=== PATIENT | female | born 1985 | race Caucasian/White ===

== ENCOUNTER → 2016-06-13 | Outpatient (CLI) | payer OTHER ==
[~2016-06-13] MED LIST: ALBU17IN INH; BACL-67 PO; CIPR-250 PO; GABA300C3 PO; PRIL40CA PO; SING10TA32 PO; TYLE325T5 PO; VICO5TAB16 PO
--- NOTE | 2016-06-13 18:15 | REP ---
Clinical: Pain. Effusion. Technique: AP, lateral, bilateral oblique, tunnel and sunrise views of the right knee. Findings: The osseous structures and joint spaces are intact and normal. There is no evidence for acute fracture or dislocation. No joint effusion is appreciated. Surrounding soft tissues are unremarkable. No subcutaneous emphysema or radiodense foreign body. Impression: Age appropriate examination. No evidence for acute fracture or dislocation. No effusion. Signed by Matthew Moreno MD 06/13/2016 06:07 P
== END ==
LOC: M RAD 17:17
PROVIDERS: ATTEND Orthopaedic Surgery
DX: M25.461 Effusion, right knee (principal)

== ENCOUNTER → 2016-11-20 | Outpatient (REF) | payer OTHER ==
[~2016-11-20] MED LIST changes: -BACL-67 PO; +BACL1TAB9 PO; +GABA-282 PO; -GABA300C3 PO
[2016-11-20 11:07] LABS: BASO % 0.4 % (0.0-1.0); EOS # 0.1 K/mm3 (0.0-0.50); EOS % 2.7 % (0.0-3.0); LARGE UNSTAINED CELL # 0.1 K/mm3 (0.0-0.4); LARGE UNSTAINED CELL % 2.3 % (0.0-4.0); LYMPH # 1.5 K/mm3 (1.5-4.5); LYMPH % 31.2 % (24.0-44.0); MEAN CORPUSCULAR HEMOGLOBIN 32.3 pg (27.0-33.0); MEAN CORPUSCULAR HGB CONC 34.2 g/dl (32.0-36.5); MEAN CORPUSCULAR VOLUME 94.4 fl (80.0-96.0); MONO # 0.3 K/mm3 (0.0-0.8); MONO % 6.4 % (0.0-5.0); NEUTROPHILS # 2.6 K/mm3 (1.8-7.7); PLATELET COUNT, AUTOMATED 200 k/mm3 (150-450); RED CELL DISTRIBUTION WIDTH 13.4 % (11.5-14.5); WHITE BLOOD COUNT 4.6 K/mm3 (4.0-10.0)
[2016-11-20 11:14] LABS: ALBUMIN 3.9 GM/DL (3.2-5.2); ALBUMIN/GLOBULIN RATIO 1.56 (1.00-1.93); ALKALINE PHOSPHATASE 67 U/L (45-117); ALT/SGPT 32 U/L (12-78); ANION GAP 8 MEQ/L (8-16); AST/SGOT 11 U/L (15-37); BILIRUBIN,TOTAL 0.6 MG/DL (0.2-1.0); BLOOD UREA NITROGEN 8 MG/DL (7-18); CALCIUM LEVEL 8.6 MG/DL (8.5-10.1); CARBON DIOXIDE LEVEL 24 MEQ/L (21-32); CHLORIDE LEVEL 110 MEQ/L (98-107); CREATININE FOR GFR 0.58 MG/DL (0.55-1.02); FERRITIN 23 NG/ML (8-252); GLOMERULAR FILTRATION RATE > 60.0 (>60); GLUCOSE, FASTING 83 MG/DL (70-105); MAGNESIUM LEVEL 2.1 MG/DL (1.8-2.4); PERCENT SATURATION 38.4 % (13.2-37.4); PHOSPHORUS LEVEL 3.7 MG/DL (2.5-4.9); POTASSIUM SERUM 4.1 MEQ/L (3.5-5.1); SODIUM LEVEL 142 MEQ/L (136-145); TOTAL IRON BINDING CAPACITY 245 UG/DL (250-450); TOTAL PROTEIN 6.4 GM/DL (6.4-8.2); VITAMIN B12 LEVEL 609 PG/ML (247-911)
[2016-11-22 10:55] LABS: PRETREATED FOLATE FOR RBCFOL 12.7 NG/ML
== END ==
LOC: M LABNEURO 10:39
PROVIDERS: ATTEND Surgery
DX: K91.2 Postsurgical malabsorption, not elsewhere classified (principal); Z98.84 Bariatric surgery status; E55.9 Vitamin D deficiency, unspecified

== ENCOUNTER → 2017-10-06 | Outpatient (REF) | payer OTHER ==
[2017-10-06 13:15] LABS: BASO % 0.6 % (0.0-1.0); EOS # 0.1 10^3/uL (0.0-0.50); EOS % 1.4 % (0.0-3.0); HEMATOCRIT 40.7 % (36.0-47.0); HEMOGLOBIN 13.7 g/dl (12.0-15.5); IMMATURE GRANULOCYTE % 0.3 % (0-3.0); LYMPH % 32.3 % (24.0-44.0); MEAN CORPUSCULAR HEMOGLOBIN 32.5 pg (27.0-33.0); MEAN CORPUSCULAR HGB CONC 33.7 g/dl (32.0-36.5); MEAN CORPUSCULAR VOLUME 96.4 fl (80.0-96.0); MONO # 0.5 10^3/uL (0.0-0.8); MONO % 8.3 % (0.0-5.0); NEUTROPHILS # 3.6 10^3/uL (1.8-7.7); NEUTROPHILS % 57.1 % (36.0-66.0); PLATELET COUNT, AUTOMATED 272 10^3/uL (150-450); RED BLOOD COUNT 4.22 10^6/uL (4.00-5.40); RED CELL DISTRIBUTION WIDTH 13.6 % (11.5-14.5); WHITE BLOOD COUNT 6.3 10^3/uL (4.0-10.0)
[2017-10-06 13:21] LABS: HEMATOCRIT 40.7 % (36.0-47.0)
[2017-10-06 13:40] LABS: ALBUMIN 3.9 GM/DL (3.2-5.2); ALBUMIN/GLOBULIN RATIO 1.39 (1.00-1.93); ALKALINE PHOSPHATASE 74 U/L (45-117); ALT/SGPT 26 U/L (12-78); ANION GAP 8 MEQ/L (8-16); AST/SGOT 16 U/L (7-37); BILIRUBIN,TOTAL 0.7 MG/DL (0.2-1.0); BLOOD UREA NITROGEN 13 MG/DL (7-18); CALCIUM LEVEL 8.9 MG/DL (8.5-10.1); CARBON DIOXIDE LEVEL 23 MEQ/L (21-32); CHLORIDE LEVEL 112 MEQ/L (98-107); CREATININE FOR GFR 0.69 MG/DL (0.55-1.30); FERRITIN 31 NG/ML (8-252); GLOMERULAR FILTRATION RATE > 60.0 (>60); GLUCOSE, FASTING 83 MG/DL (70-100); IRON (FE) 139 UG/DL (50-170); MAGNESIUM LEVEL 2.1 MG/DL (1.8-2.4); PERCENT SATURATION 54.5 % (13.2-45.0); POTASSIUM SERUM 3.9 MEQ/L (3.5-5.1); SODIUM LEVEL 143 MEQ/L (136-145); TOTAL IRON BINDING CAPACITY 255 UG/DL (250-450); TOTAL PROTEIN 6.7 GM/DL (6.4-8.2)
[2017-10-06 13:42] LABS: VITAMIN B12 LEVEL 611 PG/ML (247-911)
[2017-10-06 14:26] LABS: ESTIMATED AVERAGE GLUCOSE 94 MG/DL (60-110); HEMOGLOBIN A1c 4.9 %
[2017-10-06 14:28] LABS: TOTAL 25(OH) VITAMIN D 32.4 NG/ML (30.0-100.0)
[2017-10-07 10:14] LABS: PRETREATED FOLATE FOR RBCFOL 13.4 NG/ML; RBC FOLATE 691.4 NG/ML (280-791)
== END ==
LOC: M LABNEURO 08:10
DX: K91.2 Postsurgical malabsorption, not elsewhere classified (principal); Z98.84 Bariatric surgery status

== ENCOUNTER → 2019-01-25 | Outpatient (CLI) | payer OTHER ==
[~2019-01-25] MED LIST changes: -GABA-282 PO; +GABA-843 PO; -VICO5TAB16 PO; +VICO5TAB17 PO
[2019-01-27 10:00] LABS: HEPATITIS A ANTIBODY IGM NEGATIVE (NEGATIVE); HEPATITIS B CORE ANTIBODY IGM NEGATIVE (NEGATIVE); HEPATITIS B SURFACE ANTIGEN NEGATIVE (NEGATIVE); HEPATITIS C VIRUS ABY INDEX 0.2 INDEX (<0.8); HIV 1&2 SCREEN CENTAUR NEGATIVE (NEGATIVE)
[2019-01-28 14:07] LABS: HPV HYBRID CAPTURE II Negative (Negative)
== END ==
LOC: M LAB 16:32
PROVIDERS: ATTEND Advanced Practice Midwife
DX: Z12.4 Encounter for screening for malignant neoplasm of cervix (principal); Z11.3 Encounter for screening for infections with a predominantly sexual mode of transmission

== ENCOUNTER → 2019-01-25 | Outpatient (REF) | payer OTHER ==
[~2019-01-25] MED LIST changes: +CYCL5TAB; +HYDR-3713; +PRED20TA; +TOPI200T7
[2019-01-26 14:45] LABS: CHLAMYDIA DNA AMPLIFICATION NEGATIVE (NEGATIVE); GC DNA AMPLIFICATION NEGATIVE (NEGATIVE)
== END ==
LOC: M LAB REF 12:57
PROVIDERS: ATTEND Advanced Practice Midwife
DX: Z11.3 Encounter for screening for infections with a predominantly sexual mode of transmission (principal)

== ENCOUNTER 2019-02-06 05:08 | Emergency (ER) | payer OTHER ==
[~2019-02-06] VITALS: Ht 157.5 cm; Wt 69.1 kg
[~2019-02-06 05:08] MED LIST changes: -CYCL5TAB; -HYDR-3713; -PRED20TA; -TOPI200T7
[2019-02-06] MEDS ORDERED: PRED20TA (05:36)
[2019-02-06] MEDS ORDERED: CYCL5TAB (05:36)
[2019-02-06] MEDS ORDERED: TOPI200T7 (05:36)
[2019-02-06] MEDS ORDERED: HYDR-3713 (05:36)
[2019-02-06] MEDS ORDERED: methylPREDNISolone INJ 125 MG/2 ML VIAL (J2930) IM ONE (06:45)
[2019-02-06] MEDS ORDERED: CYCLOBENZAPRINE 10 MG TAB PO ONE (06:45)
[2019-02-06] MEDS ORDERED: NORCO, ANEXSIA 5/325MG TABLET (HYDROcodone/ACETAMINOPHEN) PO ONE (06:45)
--- NOTE | 2019-02-06 07:43 | REPVR ---
PROCEDURE INFORMATION: Exam: CT Cervical Spine Without Contrast Exam date and time: 02/06/2019 7:13 AM Clinical history: 33 years old, female; Neck pain TECHNIQUE: Imaging protocol: Computed tomography images of the cervical spine without contrast. Radiation optimization: All CT scans at this facility use at least one of these dose optimization techniques: automated exposure control; mA and/or kV adjustment per patient size (includes targeted exams where dose is matched to clinical indication); or iterative reconstruction. COMPARISON: No relevant prior studies available. FINDINGS: Vertebrae: No acute fracture. There is mild reversal of the normal cervical lordosis, possibly positional or due to muscle spasm. Discs/Spinal canal/Neural foramina: No severe osseous spinal canal stenosis. Multilevel overall mild degenerative findings. Soft tissues: Unremarkable. Lungs: Lung apices are normal. IMPRESSION: 1. No acute cervical spine fracture or traumatic malalignment. 2. There is mild reversal of the normal cervical lordosis, possibly positional or due to muscle spasm. Electronically signed by: Ajay Brooks On 02/06/2019 07:42:50 AM
[2019-02-06 08:23] VITALS: BP 134/84
== END 2019-02-06 08:24 | disposition home or self-care (01) ==
LOC: M ED 05:08
DX: M54.12 Radiculopathy, cervical region (principal); Z88.0 Allergy status to penicillin; Z88.2 Allergy status to sulfonamides; Z79.899 Other long term (current) drug therapy
CPT/HCPCS: 72125; 81001; 96372; 99284; J2930

== ENCOUNTER → 2020-08-07 | Outpatient (REF) | payer OTHER ==
[~2020-08-07] MED LIST changes: +CYCL5TAB; +GABA-282 PO; -GABA-843 PO; +HYDR-3713; +PRED20TA; +TOPI200T7
== END ==
LOC: M SFHCWAGY 17:24
PROVIDERS: ATTEND Advanced Practice Midwife
DX: Z12.4 Encounter for screening for malignant neoplasm of cervix (principal)

== ENCOUNTER → 2020-10-03 | Outpatient (CLI) | payer OTHER | LOC: M SLEEP HO 14:43 | PROVIDERS: ATTEND Family Medicine | DX: G47.30 Sleep apnea, unspecified (principal) ==

== ENCOUNTER → 2022-01-21 | Outpatient (CLI) | payer OTHER | LOC: M PLARAD 16:00 | PROVIDERS: ATTEND Physician Assistant | DX: R91.1 Solitary pulmonary nodule (principal) | CPT/HCPCS: 78815; A9552 ==

== ENCOUNTER → 2022-03-28 | Outpatient (CLI) | payer OTHER ==
[2022-03-28 11:58] LABS: BASO # 0.1 10^3/uL (0.0-0.2); BASO % 0.6 % (0.0-1.0); EOS # 0.1 10^3/uL (0.0-0.5); EOS % 1.4 % (0.0-3.0); HEMATOCRIT 38.5 % (36.0-47.0); HEMOGLOBIN 12.5 g/dl (12.0-15.5); LYMPH # 1.8 10^3/uL (1.5-5.0); LYMPH % 22.2 % (24.0-44.0); MEAN CORPUSCULAR HEMOGLOBIN 28.8 pg (27.0-33.0); MEAN CORPUSCULAR HGB CONC 32.5 g/dl (32.0-36.5); MEAN CORPUSCULAR VOLUME 88.7 fl (80.0-96.0); MONO # 0.5 10^3/uL (0.0-0.8); MONO % 6.8 % (2.0-8.0); NEUTROPHILS # 5.4 10^3/uL (1.5-8.5); NEUTROPHILS % 68.7 % (36.0-66.0); PLATELET COUNT, AUTOMATED 275 10^3/uL (150-450); RED BLOOD COUNT 4.34 10^6/uL (4.00-5.40); WHITE BLOOD COUNT 7.9 10^3/uL (4.0-10.0)
[2022-03-28 12:47] LABS: IRON (FE) 104 UG/DL (50-170); PERCENT SATURATION 26.9 % (13.2-45.0); TOTAL IRON BINDING CAPACITY 387 UG/DL (250-425)
[2022-03-28 12:50] LABS: FERRITIN 5.2 NG/ML (7.3-270.7); VITAMIN B12 LEVEL 548 PG/ML (211-911)
[2022-03-28 12:53] LABS: TOTAL 25(OH) VITAMIN D 48.2 NG/ML (20.0-100.0)
[2022-03-28 13:10] LABS: ALBUMIN 3.6 G/DL (3.2-5.2); ALKALINE PHOSPHATASE 63 U/L (46-116); ALT/SGPT 12 U/L (7.0-40); AST/SGOT 19 U/L (<34); BILIRUBIN,TOTAL 0.5 MG/DL (0.3-1.2); BLOOD UREA NITROGEN 11 MG/DL (9-23); CALCIUM LEVEL 8.7 MG/DL (8.5-10.1); CARBON DIOXIDE LEVEL 25 MMOL/L (20-31); CHLORIDE LEVEL 105 MMOL/L (98-107); CHOLESTEROL LEVEL 191 MG/DL (<200); CHOLESTEROL RISK RATIO 2.53 (<5); CREATININE FOR GFR 0.59 MG/DL (0.55-1.30); FOLATE > 24.0 NG/ML (>5.4); GLOMERULAR FILTRATION RATE > 60.0 (>60); GLUCOSE, FASTING 76 MG/DL (60-100); HDL CHOLESTEROL 75.4 MG/DL (>40); LDL CHOLESTEROL 97.2 MG/DL (<100); NON-HDL-C 116 MG/DL; POTASSIUM SERUM 4.2 MMOL/L (3.5-5.1); SODIUM LEVEL 139 MMOL/L (136-145); TOTAL PROTEIN 6.7 G/DL (5.7-8.2); TRIGLYCERIDES LEVEL 92 MG/DL (<150)
[2022-04-02 12:35] LABS: FREE T4 0.96 NG/DL (0.89-1.76)
== END ==
LOC: M LAB 09:31
PROVIDERS: ATTEND Physician Assistant
DX: Z98.84 Bariatric surgery status (principal); R42 Dizziness and giddiness; J45.909 Unspecified asthma, uncomplicated

== ENCOUNTER → 2022-04-30 | Outpatient (REF) ==
[2022-04-30 13:22] LABS: RSV AMPLIFICATION NEGATIVE (NEGATIVE)
== END ==
LOC: M LABSMTC 09:59
PROVIDERS: ATTEND Family Medicine
DX: Z20.818 Contact with and (suspected) exposure to other bacterial communicable diseases (principal)

== ENCOUNTER → 2022-05-21 | Outpatient (REF) ==
[2022-05-21 14:23] LABS: RSV AMPLIFICATION NEGATIVE (NEGATIVE)
== END ==
LOC: M LABSMTC 09:49
PROVIDERS: ATTEND Family Medicine
DX: Z11.52 Encounter for screening for COVID-19 (principal)

== ENCOUNTER 2022-08-16 09:52 | Day surgery (SDC) | payer OTHER ==
[~2022-08-16] VITALS: Ht 157.5 cm; Wt 62.6 kg
[~2022-08-16 09:52] MED LIST changes: +BUPR15TA PO; +GABA800T4 PO; +HYDR-3363 PO; +LEXA1TAB PO; +LIDOCAINE 2% 100MG/5ML SDV (FOR ANES.) As Ordered ONE; +MONT-5 PO; +NS 1,000 ML IV ONE; +OMEP1CAP73 PO; +PROA1AER2 INH; -SING10TA32 PO; +fentaNYL 100 MCG/2 ML INJECTION As Ordered ONE; +propofoL 500 MG/50 ML VIAL As Ordered ONE
[2022-08-16] MEDS ORDERED: SIMETHICONE 40MG/0.6ML DROPS 30ML As Ordered ONE (11:17)
[2022-08-16 11:57] VITALS: BP 120/61
== END 2022-08-16 12:10 | disposition home or self-care (01) ==
LOC: M OPP 09:52
PROVIDERS: ATTEND Internal Medicine Gastroenterology
DX: K52.9 Noninfective gastroenteritis and colitis, unspecified (principal); K64.4 Residual hemorrhoidal skin tags; K64.8 Other hemorrhoids; K31.89 Other diseases of stomach and duodenum; Z98.84 Bariatric surgery status; Z79.51 Long term (current) use of inhaled steroids; Z79.891 Long term (current) use of opiate analgesic; Z79.899 Other long term (current) drug therapy; Z88.0 Allergy status to penicillin; Z88.2 Allergy status to sulfonamides; Z88.5 Allergy status to narcotic agent; Z80.0 Family history of malignant neoplasm of digestive organs; Z83.71 Family history of colonic polyps
CPT/HCPCS: 43239; 45385; 88305; J3010

== ENCOUNTER 2023-04-01 15:55 | Inpatient (IN) | payer OTHER ==
[~2023-04-01] VITALS: Ht 157.5 cm; Wt 70.0 kg
[~2023-04-01 15:55] MED LIST changes: -LIDOCAINE 2% 100MG/5ML SDV (FOR ANES.) As Ordered ONE; -NS 1,000 ML IV ONE; -fentaNYL 100 MCG/2 ML INJECTION As Ordered ONE; -propofoL 500 MG/50 ML VIAL As Ordered ONE
[2023-04-01] MEDS ORDERED: ACETAMINOPHEN TAB 650MG DOSE (2X325MG) PO ONE (16:15)
[2023-04-01] MEDS ORDERED: EFFE75CA2 PO (16:18)
[2023-04-01] MEDS ORDERED: CEFEPIME HCL 2 GM in D5W MINI-BAG PLUS 50 ML IV ONE (16:20)
[2023-04-01 18:21] LABS: BASO % 0.2 % (0.0-1.0); EOS # 0.7 10^3/uL (0.0-0.5); EOS % 7.1 % (0.0-3.0); HEMATOCRIT 32.9 % (36.0-47.0); LYMPH # 0.6 10^3/uL (1.5-5.0); MEAN CORPUSCULAR HEMOGLOBIN 28.9 pg (27.0-33.0); MEAN CORPUSCULAR HGB CONC 33.4 g/dl (32.0-36.5); MEAN CORPUSCULAR VOLUME 86.4 fl (80.0-96.0); MONO # 0.6 10^3/uL (0.0-0.8); NEUTROPHILS # 8.1 10^3/uL (1.5-8.5); NEUTROPHILS % 80.4 % (36.0-66.0); PLATELET COUNT, AUTOMATED 236 10^3/uL (150-450); RED BLOOD COUNT 3.81 10^6/uL (4.00-5.40); WHITE BLOOD COUNT 10.1 10^3/uL (4.0-10.0)
[2023-04-01 18:33] LABS: INR 1.17; PROTHROMBIN TIME 14.5 SECONDS (12.5-14.5)
[2023-04-01 18:34] LABS: ERYTHROCYTE SEDIMENTATION RATE 25 mm/hr (0-20); PARTIAL THROMBOPLASTIN TIME 37.7 SECONDS (24.8-34.2)
[2023-04-01] MEDS ORDERED: MED REC IN PROGRESS XX SCH (18:40)
[2023-04-01 18:42] LABS: ALBUMIN 2.7 G/DL (3.2-5.2); ALKALINE PHOSPHATASE 89 U/L (46-116); ALT/SGPT 15 U/L (7.0-40); AST/SGOT 11 U/L (<34); BILIRUBIN,DIRECT 0.2 MG/DL (<0.4); BILIRUBIN,TOTAL 0.6 MG/DL (0.3-1.2); BLOOD UREA NITROGEN 8 MG/DL (9-23); CALCIUM LEVEL 7.9 MG/DL (8.5-10.1); CARBON DIOXIDE LEVEL 26 MMOL/L (20-31); CHLORIDE LEVEL 99 MMOL/L (98-107); GLOMERULAR FILTRATION RATE > 60.0 (>58); GLUCOSE, FASTING 94 MG/DL (60-100); POTASSIUM SERUM 3.9 MMOL/L (3.5-5.1); SODIUM LEVEL 130 MMOL/L (136-145); TOTAL PROTEIN 5.8 G/DL (5.7-8.2)
[2023-04-01] MEDS ORDERED: IPRA0.00 INH (18:58)
[2023-04-01] MEDS ORDERED: NITR100C2 PO (18:58)
[2023-04-01] MEDS ORDERED: LAMO25TA4 PO (18:58)
[2023-04-01] MEDS ORDERED: DOXY100T PO (18:58)
[2023-04-01] MEDS ORDERED: NORE1PAT TD (18:58)
[2023-04-01] MEDS ORDERED: HYDR50TA70 PO (18:58)
[2023-04-01] MEDS ORDERED: OMEP40CA5 PO (18:58)
[2023-04-01] MEDS ORDERED: MONT-5 PO (18:59)
[2023-04-01] MEDS ORDERED: HOME MED LIST COMPLETE! XX SCH (19:05)
[2023-04-01 19:37] LABS: APPEARANCE, URINE HAZY (CLEAR); BACTERIA, URINE AUTO 1+ (NEGATIVE); BILIRUBIN, URINE AUTO NEGATIVE (NEGATIVE); BLOOD, URINE BLOOD NEGATIVE (NEGATIVE); COLOR, URINE YELLOW (YELLOW); GLUCOSE, URINE (UA) AUTO NEGATIVE (NEGATIVE); KETONE, URINE AUTO TRACE mg/dL (NEGATIVE); LEUKOCYTE ESTERASE, URINE AUTO NEGATIVE (NEGATIVE); MUCUS, URINE SMALL (NEGATIVE); NITRITE, URINE AUTO NEGATIVE (NEGATIVE); PROTEIN, URINE AUTO NEGATIVE (NEGATIVE); RBC, URINE AUTO 1 /HPF (0-3); SPECIFIC GRAVITY URINE AUTO 1.013 (1.002-1.035); SQUAMOUS EPITHELIAL CELL UR AU 11 /HPF (0-6); WBC, URINE AUTO 1 /HPF (0-3)
[2023-04-01] MEDS ORDERED: ALBUTEROL 90 MCG/ACT 8GM HFA INHALER INH PRN (21:20)
[2023-04-01] MEDS ORDERED: IPRATROPIUM 0.5MG/ALBUTEROL 2.5MG INH SOL UD 3ML (DUONEB) INH PRN (21:20)
[2023-04-01] MEDS ORDERED: ACETAMINOPHEN TAB 650MG DOSE (2X325MG) PO PRN (21:20)
[2023-04-01] MEDS ORDERED: LEVALBUTEROL HFA 45MCG/ACT 15GM INHALER INH PRN (21:30)
[2023-04-01] MEDS ORDERED: VANCOMYCIN HCL 750 MG, VIAL MATE ADAPTER 1 EACH in D5W 250 ML IV ONE ×2 (22:00→23:00)
[2023-04-01] MEDS ORDERED: VANCOMYCIN HCL 1,000 MG, VIAL MATE ADAPTER 1 EACH in D5W 250 ML IV SCH (22:00)
[2023-04-01] MEDS: MONTELUKAST 10 MG TAB PO SCH (22:14)
[2023-04-01] MEDS: hydrOXYzine 50 MG TAB PO SCH (22:14)
[2023-04-01] MEDS: OMEPRAZOLE 20MG CAP PO SCH (22:14)
[2023-04-01] MEDS: buPROPion **SR TABLET** (ZYBAN) 150MG PO SCH (22:15)
[2023-04-01] MEDS: LACTOBACILLUS ACIDOPHILUS CAP (BACID) PO SCH (22:15)
[2023-04-01] MEDS: GABAPENTIN 400MG CAP PO SCH (22:15)
[2023-04-01 23:07] VITALS: BP 128/62; TEMP 99.9; O2SAT 99
[2023-04-01 23:16] LABS: OSMOLALITY SERUM 270 MOSM/KG (275-295)
[2023-04-01 23:18] LABS: HIV 1&2 SCREEN NEGATIVE (NEGATIVE)
[2023-04-01 23:27] LABS: HEPATITIS C VIRUS ABY INDEX 0.16 INDEX (<0.8)
[2023-04-02] MEDS ORDERED: METH10CO PO (00:57)
[2023-04-02 06:00] VITALS: BP 126/78; TEMP 99.4; O2SAT 96
[2023-04-02] MEDS: VANCOMYCIN HCL 750 MG, VIAL MATE ADAPTER 1 EACH in D5W 250 ML IV SCH ×4 (06:12→23:26)
[2023-04-02 06:33] LABS: BASO % 0.3 % (0.0-1.0); EOS # 1.4 10^3/uL (0.0-0.5); EOS % 15.7 % (0.0-3.0); HEMATOCRIT 33.7 % (36.0-47.0); LYMPH # 1.5 10^3/uL (1.5-5.0); LYMPH % 16.9 % (24.0-44.0); MEAN CORPUSCULAR HGB CONC 32.6 g/dl (32.0-36.5); MEAN CORPUSCULAR VOLUME 88.9 fl (80.0-96.0); MONO # 0.8 10^3/uL (0.0-0.8); MONO % 8.6 % (2.0-8.0); NEUTROPHILS # 5.2 10^3/uL (1.5-8.5); NEUTROPHILS % 58.3 % (36.0-66.0); PLATELET COUNT, AUTOMATED 198 10^3/uL (150-450); RED BLOOD COUNT 3.79 10^6/uL (4.00-5.40); WHITE BLOOD COUNT 8.9 10^3/uL (4.0-10.0)
[2023-04-02 07:06] LABS: BLOOD UREA NITROGEN 7 MG/DL (9-23); CALCIUM LEVEL 7.6 MG/DL (8.5-10.1); CARBON DIOXIDE LEVEL 26 MMOL/L (20-31); CHLORIDE LEVEL 103 MMOL/L (98-107); CREATININE FOR GFR 0.62 MG/DL (0.55-1.30); GLOMERULAR FILTRATION RATE > 60.0 (>58); GLUCOSE, FASTING 100 MG/DL (60-100); POTASSIUM SERUM 3.9 MMOL/L (3.5-5.1); SODIUM LEVEL 135 MMOL/L (136-145)
[2023-04-02] MEDS: GABAPENTIN 400MG CAP PO SCH ×3 (09:16→22:03)
[2023-04-02] MEDS: buPROPion **SR TABLET** (ZYBAN) 150MG PO SCH ×2 (09:16→22:03)
[2023-04-02] MEDS: hydrOXYzine 50 MG TAB PO SCH ×3 (09:16→22:03)
[2023-04-02] MEDS: OMEPRAZOLE 20MG CAP PO SCH ×2 (09:16→22:03)
[2023-04-02 09:17] LABS: ANTI-STREPTOLYSIN O QUANT 132.2 IU/ML (<195)
[2023-04-02] MEDS: LACTOBACILLUS ACIDOPHILUS CAP (BACID) PO SCH ×4 (09:17→22:02)
[2023-04-02] MEDS: VENLAFAXINE **XR** 75MG CAPSULE PO SCH (09:17)
[2023-04-02] MEDS: lamoTRIgine 25MG TAB PO SCH (09:17)
[2023-04-02] MEDS ORDERED: INFLUENZA QUADRIVALENT PF VACCINE 0.5ML SYRINGE IM.IMMUN ONE (11:00)
[2023-04-02] MEDS: METHADONE 10MG TAB PO SCH (12:12)
[2023-04-02 14:22] VITALS: BP 100/53; TEMP 98.1; O2SAT 96
[2023-04-02 20:00] VITALS: BP 106/53; TEMP 98.1; O2SAT 98
[2023-04-02] MEDS: MONTELUKAST 10 MG TAB PO SCH (22:03)
[2023-04-02] MEDS: ENOXAPARIN 40MG/0.4ML SYRINGE (J1650 PER 10MG) SC SCH (22:04)
[2023-04-02 22:47] VITALS: BP 100/60; TEMP 98; O2SAT 99
[2023-04-03 06:20] VITALS: BP 105/62; TEMP 98.1; O2SAT 99
[2023-04-03 06:25] LABS: HEMATOCRIT 30.9 % (36.0-47.0); MEAN CORPUSCULAR HEMOGLOBIN 29.1 pg (27.0-33.0); MEAN CORPUSCULAR HGB CONC 32.4 g/dl (32.0-36.5); MEAN CORPUSCULAR VOLUME 89.8 fl (80.0-96.0); PLATELET COUNT, AUTOMATED 255 10^3/uL (150-450); RED BLOOD COUNT 3.44 10^6/uL (4.00-5.40); WHITE BLOOD COUNT 7.4 10^3/uL (4.0-10.0)
[2023-04-03] MEDS: VANCOMYCIN HCL 750 MG, VIAL MATE ADAPTER 1 EACH in D5W 250 ML IV SCH ×3 (06:28→22:19)
[2023-04-03 06:52] LABS: BLOOD UREA NITROGEN 8 MG/DL (9-23); CALCIUM LEVEL 7.6 MG/DL (8.5-10.1); CARBON DIOXIDE LEVEL 28 MMOL/L (20-31); CHLORIDE LEVEL 106 MMOL/L (98-107); CREATININE FOR GFR 0.64 MG/DL (0.55-1.30); GLOMERULAR FILTRATION RATE > 60.0 (>58); GLUCOSE, FASTING 81 MG/DL (60-100); POTASSIUM SERUM 4.1 MMOL/L (3.5-5.1); SODIUM LEVEL 141 MMOL/L (136-145)
[2023-04-03 08:00] VITALS: BP 114/61; TEMP 98.2; O2SAT 99
[2023-04-03] MEDS: GABAPENTIN 400MG CAP PO SCH ×3 (08:29→22:24)
[2023-04-03] MEDS: VENLAFAXINE **XR** 75MG CAPSULE PO SCH (08:29)
[2023-04-03] MEDS: LACTOBACILLUS ACIDOPHILUS CAP (BACID) PO SCH ×4 (08:29→22:24)
[2023-04-03] MEDS: buPROPion **SR TABLET** (ZYBAN) 150MG PO SCH ×2 (08:29→22:24)
[2023-04-03] MEDS: hydrOXYzine 50 MG TAB PO SCH ×3 (08:30→22:24)
[2023-04-03] MEDS: lamoTRIgine 25MG TAB PO SCH (08:30)
[2023-04-03] MEDS: METHADONE 10MG TAB PO SCH (08:30)
[2023-04-03] MEDS: OMEPRAZOLE 20MG CAP PO SCH ×2 (08:30→22:24)
[2023-04-03] MEDS: MUPIROCIN 2% OINT 22 GM TUBE TOP SCH ×2 (09:15→22:26)
[2023-04-03 13:40] VITALS: BP 108/63; TEMP 97.1; O2SAT 99
[2023-04-03 21:14] VITALS: BP 119/76; TEMP 98.4; O2SAT 99
[2023-04-03] MEDS: MONTELUKAST 10 MG TAB PO SCH (22:24)
[2023-04-03] MEDS: ENOXAPARIN 40MG/0.4ML SYRINGE (J1650 PER 10MG) SC SCH (22:25)
[2023-04-04] MEDS: VANCOMYCIN HCL 750 MG, VIAL MATE ADAPTER 1 EACH in D5W 250 ML IV SCH (05:56)
[2023-04-04 06:01] LABS: BASO % 0.5 % (0.0-1.0); EOS # 0.7 10^3/uL (0.0-0.5); EOS % 11.1 % (0.0-3.0); HEMATOCRIT 31.5 % (36.0-47.0); HEMOGLOBIN 10.2 g/dl (12.0-15.5); LYMPH # 2.2 10^3/uL (1.5-5.0); MEAN CORPUSCULAR HEMOGLOBIN 28.7 pg (27.0-33.0); MEAN CORPUSCULAR HGB CONC 32.4 g/dl (32.0-36.5); MEAN CORPUSCULAR VOLUME 88.5 fl (80.0-96.0); MONO # 0.4 10^3/uL (0.0-0.8); MONO % 6.9 % (2.0-8.0); NEUTROPHILS % 47.2 % (36.0-66.0); PLATELET COUNT, AUTOMATED 258 10^3/uL (150-450); RED BLOOD COUNT 3.56 10^6/uL (4.00-5.40); WHITE BLOOD COUNT 6.4 10^3/uL (4.0-10.0)
[2023-04-04 06:13] VITALS: BP 121/78; TEMP 98.1; O2SAT 98
[2023-04-04] MEDS: VENLAFAXINE **XR** 75MG CAPSULE PO SCH (08:31)
[2023-04-04] MEDS: LACTOBACILLUS ACIDOPHILUS CAP (BACID) PO SCH (08:31)
[2023-04-04] MEDS: GABAPENTIN 400MG CAP PO SCH (08:31)
[2023-04-04] MEDS: buPROPion **SR TABLET** (ZYBAN) 150MG PO SCH (08:31)
[2023-04-04] MEDS: OMEPRAZOLE 20MG CAP PO SCH (08:31)
[2023-04-04] MEDS: METHADONE 10MG TAB PO SCH (08:31)
[2023-04-04] MEDS: lamoTRIgine 25MG TAB PO SCH (08:32)
[2023-04-04] MEDS: hydrOXYzine 50 MG TAB PO SCH (08:32)
[2023-04-04] MEDS: MUPIROCIN 2% OINT 22 GM TUBE TOP SCH (08:33)
[2023-04-04 08:55] LABS: BLOOD UREA NITROGEN 7 MG/DL (9-23); CALCIUM LEVEL 7.6 MG/DL (8.5-10.1); CARBON DIOXIDE LEVEL 26 MMOL/L (20-31); CHLORIDE LEVEL 110 MMOL/L (98-107); CREATININE FOR GFR 0.62 MG/DL (0.55-1.30); GLOMERULAR FILTRATION RATE > 60.0 (>58); GLUCOSE, FASTING 98 MG/DL (60-100); POTASSIUM SERUM 3.9 MMOL/L (3.5-5.1); SODIUM LEVEL 142 MMOL/L (136-145)
[2023-04-04] MEDS ORDERED: NICOTINE 14 MG/24 HR TRANSDERMAL TD SCH (09:00)
[2023-04-04] MEDS ORDERED: MUPI2OI TOP (09:26)
[2023-04-04] MEDS ORDERED: HIBI4LIQ EX (09:26)
[2023-04-04] MEDS ORDERED: DALV1SOL IV (10:40)
== END 2023-04-04 12:03 | disposition home or self-care (01) | DRG 383 ==
LOC: M ED 15:55 → EDBD 15:55 → M ED INP 20:43 → M MS4PR 22:59 → M MS5PR 04-02 22:47
PROVIDERS: ADMIT Internal Medicine; ATTEND Internal Medicine
DX: L03.113 Cellulitis of right upper limb (principal); D72.10 Eosinophilia, unspecified; E87.1 Hypo-osmolality and hyponatremia; E88.09 Other disorders of plasma-protein metabolism, not elsewhere classified; F11.20 Opioid dependence, uncomplicated; J45.909 Unspecified asthma, uncomplicated; R91.8 Other nonspecific abnormal finding of lung field; G47.33 Obstructive sleep apnea (adult) (pediatric); K21.9 Gastro-esophageal reflux disease without esophagitis; D72.810 Lymphocytopenia; F41.9 Anxiety disorder, unspecified; F31.9 Bipolar disorder, unspecified; F43.10 Post-traumatic stress disorder, unspecified; F17.210 Nicotine dependence, cigarettes, uncomplicated; Z79.899 Other long term (current) drug therapy; Z88.0 Allergy status to penicillin; Z88.2 Allergy status to sulfonamides; Z88.5 Allergy status to narcotic agent; Z98.84 Bariatric surgery status; Z90.49 Acquired absence of other specified parts of digestive tract; Z98.1 Arthrodesis status

== ENCOUNTER → 2023-04-04 | Outpatient (CLI) | payer OTHER ==
[~2023-04-04] VITALS: Ht 157.5 cm; Wt 70.0 kg
[~2023-04-04] MED LIST changes: +DALBAVANCIN 1,500 MG in D5W 250 ML IV ONE; +DALV1SOL IV; +DOXY100T PO; +EFFE75CA2 PO; +HIBI4LIQ EX; +HYDR50TA70 PO; +IPRA0.00 INH; +LAMO25TA4 PO; +METH10CO PO; +MUPI2OI TOP; +NITR100C2 PO; +NORE1PAT TD; +OMEP40CA5 PO
[2023-04-04 12:30] VITALS: BP 113/57; O2SAT 97
== END ==
LOC: M INFU 12:22
PROVIDERS: ATTEND Internal Medicine
DX: L03.90 Cellulitis, unspecified (principal); Z88.0 Allergy status to penicillin; Z88.2 Allergy status to sulfonamides; Z88.5 Allergy status to narcotic agent
CPT/HCPCS: 96365; J0875

== ENCOUNTER 2024-04-14 16:16 | Emergency (ER) | payer OTHER ==
[~2024-04-14] VITALS: Ht 157.5 cm; Wt 75.8 kg
[~2024-04-14 16:16] MED LIST changes: -CYCL5TAB; +CYCL5TAB4; -DALBAVANCIN 1,500 MG in D5W 250 ML IV ONE; +GABA-1172 PO; +GABA-1635 PO; -GABA-282 PO; -GABA800T4 PO
[2024-04-14 16:44] VITALS: BP 146/80; TEMP 98.1; O2SAT 97
[2024-04-15] MEDS ORDERED: CLEO300C2 PO (19:47)
== END 2024-04-14 17:54 | disposition left against medical advice (07) ==
LOC: M ED 16:16
DX: Z53.21 Procedure and treatment not carried out due to patient leaving prior to being seen by health care provider (principal)

== ENCOUNTER 2024-04-15 12:54 | Emergency (ER) | payer OTHER ==
[~2024-04-15] VITALS: Ht 157.5 cm; Wt 75.5 kg
[2024-04-15 15:08] LABS: BASO # 0.1 10^3/uL (0.0-0.2); BASO % 0.7 % (0.0-1.0); EOS # 0.1 10^3/uL (0.0-0.5); EOS % 0.8 % (0.0-3.0); HEMATOCRIT 37.5 % (36.0-47.0); HEMOGLOBIN 12.1 g/dl (12.0-15.5); LYMPH # 1.7 10^3/uL (1.5-5.0); LYMPH % 23.1 % (24.0-44.0); MEAN CORPUSCULAR HEMOGLOBIN 27.6 pg (27.0-33.0); MEAN CORPUSCULAR HGB CONC 32.3 g/dl (32.0-36.5); MEAN CORPUSCULAR VOLUME 85.6 fl (80.0-96.0); MONO # 0.5 10^3/uL (0.0-0.8); MONO % 6.5 % (2.0-8.0); NEUTROPHILS # 5.1 10^3/uL (1.5-8.5); NEUTROPHILS % 68.8 % (36.0-66.0); PLATELET COUNT, AUTOMATED 302 10^3/uL (150-450); RED BLOOD COUNT 4.38 10^6/uL (4.00-5.40); WHITE BLOOD COUNT 7.4 10^3/uL (4.0-10.0)
[2024-04-15 15:18] LABS: ERYTHROCYTE SEDIMENTATION RATE 31 mm/hr (0-20)
[2024-04-15 15:36] LABS: HCG, SERUM QUALITATIVE NEGATIVE (NEGATIVE)
[2024-04-15 15:38] LABS: C REACTIVE PROTEIN QUANTITATIV 4.75 MG/DL (<1.0)
[2024-04-15] MEDS ORDERED: DALBAVANCIN 1,500 MG in D5W 250 ML IV ONE (16:20)
[2024-04-15] MEDS ORDERED: CLEO300C2 PO (19:47)
[2024-04-15 19:59] VITALS: BP 140/87; TEMP 97.8; O2SAT 98
[2024-04-15] MEDS: CLINDAMYCIN 150MG CAPSULE PO ONE (19:59)
== END 2024-04-15 20:01 | disposition home or self-care (01) ==
LOC: M ED 12:54
DX: L03.116 Cellulitis of left lower limb (principal); R22.42 Localized swelling, mass and lump, left lower limb; Z88.2 Allergy status to sulfonamides; Z91.09 Other allergy status, other than to drugs and biological substances; Z79.51 Long term (current) use of inhaled steroids; Z79.899 Other long term (current) drug therapy; Z53.9 Procedure and treatment not carried out, unspecified reason